=== PATIENT | female | born 1945 | race Caucasian/White ===

== ENCOUNTER → 2023-04-21 09:45 | Outpatient (REF) | payer MEDICARE, OTHER, SELFPAY ==
[2023-04-21 11:31] LABS: ALT (SGPT) 17 U/L (0-35); AST (SGOT) 25 U/L (14-36); Alkaline Phosphatase 33 U/L (38-126); Blood Urea Nitrogen 23 mg/dl (7-17); Calcium 9.4 mg/dl (8.4-10.2); Carbon Dioxide 27 mmol/L (22-30); Chloride 101 mmol/L (98-107); Glucose 102 mg/dl (70-99); Potassium 4.4 mmol/L (3.5-5.1); Sodium 137 mmol/L (135-145); Total Bilirubin 0.7 mg/dl (0.2-1.3); Total Protein 6.3 g/dl (6.3-8.2); eGFR > 60.00
[2023-04-21 12:05] LABS: TSH 1.05 uIU/ml (0.47-4.68)
== END ==
LOC: REG 09:45
PROVIDERS: ATTENDING PHYSICIAN Internal Medicine Endocrinology, Diabetes & Metabolism; FAMILY PHYSICIAN Internal Medicine
DX: M81.0 Age-related osteoporosis without current pathological fracture (principal); E03.9 Hypothyroidism, unspecified
CPT/HCPCS: 36415; 80053; 84443

== ENCOUNTER → 2023-06-30 08:56 | Outpatient (REF) | payer MEDICARE, OTHER, SELFPAY ==
[2023-06-30 09:47] LABS: ALT (SGPT) 18 U/L (0-35); AST (SGOT) 25 U/L (14-36); Albumin 4.3 g/dl (3.5-5.0); Alkaline Phosphatase 40 U/L (38-126); Blood Urea Nitrogen 31 mg/dl (7-17); Calcium 9.4 mg/dl (8.4-10.2); Carbon Dioxide 24 mmol/L (22-30); Chloride 105 mmol/L (98-107); Glucose 104 mg/dl (70-99); HDL Cholesterol 98 mg/dl; LDL Cholesterol, Calculated 86 mg/dl; Sodium 139 mmol/L (135-145); Total Bilirubin 0.6 mg/dl (0.2-1.3); Total Cholesterol 214 mg/dl (50-199); Total Protein 6.7 g/dl (6.3-8.2); Triglyceride 153 mg/dl (10-149); Very Low Density Lipoprotein 30 mg/dl (0-30); eGFR > 60.00
[2023-06-30 09:49] LABS: Glycohemoglobin (HgbA1c) 5.7 % (4.0-5.6)
[2023-06-30 10:03] LABS: Potassium 4.4 mmol/L (3.5-5.1)
== END ==
LOC: REG 08:56
PROVIDERS: ATTENDING PHYSICIAN Internal Medicine; REFERRING PHYSICIAN Internal Medicine Endocrinology, Diabetes & Metabolism
DX: E78.00 Pure hypercholesterolemia, unspecified (principal); R73.01 Impaired fasting glucose
CPT/HCPCS: 36415; 80053; 80061; 83036

== ENCOUNTER 2023-11-23 20:34 | Observation (INO) | payer MEDICARE, OTHER, SELFPAY ==
[2023-11-23] VITALS (11 sets, daily range): BP systolic 113–166; BP diastolic 47–150; BMI 22.9; BMI 23.5
--- NOTE | 2023-11-23 12:40 | ED.GENMED ---
History of Present Illness
<Arias Gaines PA-C - Last Filed: 11/24/23 16:18>
General
Chief Complaint: Facial Problem
Source: patient
Exam Limitations: none
Time Seen by Provider: 11/23/23 12:19
History of Present Illness
History of Present Illness:
78-year-old female presents with the onset of a right-sided facial droop that started at 11 AM today. She notices after she went for a swim this morning. She denies any significant headache or vision change. No chest pain or shortness of breath.
She notes fatigue recently but denies any rash or known tick bites. No vomiting. No chest pain. She does have a history of a valve replacement. She is on a baby aspirin and Synthroid.
Phy Exam
<Arias Gaines PA-C - Last Filed: 11/24/23 16:18>
Physical Exam
Physical Exam:
General: Well-appearing female in no acute respiratory distress
HEENT: Normocephalic atraumatic pupils equal round reactive to light extraocular's are intact heart: Regular rate and rhythm no murmurs
Lungs: Clear no wheeze
Neurologic alert and oriented x 3 there is a right facial droop. She is able to wrinkle her forehead on the right side however. No drift on exam finger-nose intact no dysarthria or aphasia.
Scores
<Arias Gaines PA-C - Last Filed: 11/24/23 16:18>
NIH Stroke Score
Level of Consciousness: 0 - Alert
LOC Questions: 0-Answers both correctly
LOC Commands: 0-Performs both correctly
Best Horizontal Gaze: 0-Normal
Visual Bishop: 0=Normal, no visual loss
Facial Palsy: 2=Partial paralysis
Motor - Right Arm: 0=No drift 10 seconds
Motor - Left Arm: 0=No drift 10 seconds
Motor - Right Le-No drift 5 seconds
Motor - Left Le-No drift 5 seconds
Limb Ataxia: 0-Absent
Sensation: 0-Normal
Best Language: 0-No aphasia
Dysarthria: 0-Normal
Extinction and Inattention: 0-No abnormality
Total Score:: 2
<Reza NiltonTraci Goode DO - Last Filed: 11/23/23 19:46>
NIH Stroke Score
Total Score:: 2
Course
<Arias Gaines PA-C - Last Filed: 11/24/23 16:18>
Orders/Labs/Results
Orders:
Orders
11/23/23 12:34
CT Head W/o Iv Contrast Urgent
Comment:
Reason For Exam: right facial droop
11/23/23 12:57
Cardiovascular Evaluation Urgent
Complete Blood Count/With Diff Urgent
Comprehensive Metabolic Panel Urgent
Glycohemoglobin (HgbA1c) Urgent
Lyme Progressive Urgent
TSH Reflex To Free T4 Urgent
Comment: ADD ON
11/23/23 13:13
Electrocardiogram (*1) Urgent
Reason for Study: TIA/Stroke
EKG- Treatment ONCE
11/23/23 13:24
Consult Neurology [NEUROLOGY CONSULT] Urgent
Consulting Provider: Chuck Lin
Was physician already notified: Yes
11/23/23 13:26
MR Brain Without Contrast Routine
Comment:
Reason For Exam: ? bihemis stroke right facial droop, left arm sens
Recent pill cam endoscopy?: No
11/23/23 13:27
CT Head & Neck Angio W/wo IV Routine
Comment:
Reason For Exam: stenosis
11/23/23 13:49
Echo W Saline (bubble) Dop Routine
Reason for Study: tia/cva
11/23/23 14:00
Clopidogrel Bisulfate [Plavix] 75 mg PO DAILY
11/23/23 14:23
CARDIOLOGY CONSULT Urgent
Consulting Provider: Galo Childs
Was physician already notified: Yes
11/23/23 15:50
Add On- LAB Urgent
Tests Added?: TSH, Lipid Profile, Hemaglobin A1C
11/23/23 18:00
Atorvastatin [Lipitor] 40 mg PO QPM
11/23/23 19:37
Aspirin Chewable [Low Strength Aspirin] 324 mg PO NOW STA
Clopidogrel Bisulfate [Plavix] 225 mg PO NOW STA
11/23/23 20:19
Admit/Transfer Patient As Directed
Co-Sign Provider:
Level of Care: Observation services
Assign to:: Telemetry
Physician / Group: kay
Diagnosis: cva
Reason for Telemetry: Arrhythmia
Date to Stop Telemetry: 11/26/23
Time to Stop Telemetry: 11:00
Code Status As Directed
Resuscitation Status: Full Code
PRN Pain Medication Management As Directed
May give lesser potent ordered pain med per pt: Yes
preference::
Protocol:: Medication orders for pain may be administered in a
manner that supports deferring to patient preference
when the pt is:
- Requesting an ordered lesser potent pain medication.
Least to most potent pain medications are defined
as: acetaminophen < NSAID < tramadol < opioids
(morphine, oxycodone, hydromorphone).
- Requesting a lesser dose of the same medication IF
ORDERED.
- Requesting a less intrusive route of administration
if both routes are prescribed by the provider (PO <
IV).
11/23/23 21:52
Acetaminophen [Tylenol] 650 mg PO Q6HPRN PRN
11/23/23 21:52
Activity As Directed
Activity Level: As Tolerated
NIH Stroke Scale As Directed
Directions: Per protocol
Comment: every shift and with any change in condition or mental status
Neurological Checks As Directed
Frequency: q4h
Additional Instructions:: q4h x 24h upon admission to the floor, then qshift & with any change in condition
and mental status
Pneumatic Compression Sleeves As Directed
Type: Knee high
Vital Signs As Directed
Frequency: Per unit guidelines
DX Deep Vein Thrombosis Video Routine
11/24/23 04:49
Basic Metabolic Panel IN AM
Cardiovascular Evaluation IN AM
Complete Blood Count/No Diff IN AM
11/24/23 06:00
Levothyroxine [Synthroid] 75 mcg PO SUMOWETHFRSA@0600
11/24/23 08:00
Ascorbic Acid [Vitamin C] 500 mg PO DAILY
Aspirin Chewable [Low Strength Aspirin] 81 mg PO DAILY
Calcium Carbonate [Oscal Quinn 500] 500 mg PO DAILY
Multivitamin [Theragran] 1 tablet PO DAILY
guar gum 1 tbsp PO DAILY
11/24/23 18:00
Escitalopram Oxalate [Lexapro] 10 mg PO QPM
11/26/23 11:00
DC Protocol for Telemetry ONCE
12/13/23 08:00
Ergocalciferol [Drisdol (Vitamin D2)] 50,000 units PO Q21D
Abnormal Lab Results
11/23/23
12:57
BUN 24 H mg/dl
(7-17)
Glucose 105 H mg/dl
(70-99)
Total Cholesterol 242 H mg/dl
(50-199)
11/23/23 12:57
11/23/23 12:57
Vital Signs
Initial and Last Documented VS:
Initial Vital Signs
Temp Pulse Resp BP Pulse Ox
98.5 F 88 18 139/86 98
11/23/23 12:05 11/23/23 12:05 11/23/23 12:05 11/23/23 12:05 11/23/23 12:05
Last Documented Vital Signs
Temp Pulse Resp BP Pulse Ox
98.2 F 68 16 101/70 95
11/24/23 15:03 11/24/23 15:03 11/24/23 15:03 11/24/23 15:03 11/24/23 15:03
Joselt;Reza Goode, - Last Filed: 11/23/23 19:46>
Orders/Labs/Results
Orders:
Orders
11/23/23 12:34
CT Head W/o Iv Contrast Urgent
Comment:
Reason For Exam: right facial droop
11/23/23 12:57
Cardiovascular Evaluation Urgent
Complete Blood Count/With Diff Urgent
Comprehensive Metabolic Panel Urgent
Glycohemoglobin (HgbA1c) Urgent
Lyme Progressive Urgent
TSH Reflex To Free T4 Urgent
Comment: ADD ON
11/23/23 13:13
Electrocardiogram (*1) Urgent
Reason for Study: TIA/Stroke
EKG- Treatment ONCE
11/23/23 13:24
Consult Neurology [NEUROLOGY CONSULT] Urgent
Consulting Provider: Chuck Lin
Was physician already notified: Yes
11/23/23 13:26
MR Brain Without Contrast Routine
Comment:
Reason For Exam: ? bihemis stroke right facial droop, left arm sens
Recent pill cam endoscopy?: No
11/23/23 13:27
CT Head & Neck Angio W/wo IV Routine
Comment:
Reason For Exam: stenosis
11/23/23 13:49
Echo W Saline (bubble) Dop Routine
Reason for Study: tia/cva
11/23/23 14:00
Clopidogrel Bisulfate [Plavix] 75 mg PO DAILY
11/23/23 14:23
CARDIOLOGY CONSULT Urgent
Consulting Provider: Galo Childs
Was physician already notified: Yes
11/23/23 15:50
Add On- LAB Urgent
Tests Added?: TSH, Lipid Profile, Hemaglobin A1C
11/23/23 18:00
Atorvastatin [Lipitor] 40 mg PO QPM
11/23/23 19:37
Aspirin Chewable [Low Strength Aspirin] 324 mg PO NOW STA
Clopidogrel Bisulfate [Plavix] 225 mg PO NOW STA
11/23/23 20:19
Admit/Transfer Patient As Directed
Co-Sign Provider:
Level of Care: Observation services
Assign to:: Telemetry
Physician / Group: kay
Diagnosis: cva
Reason for Telemetry: Arrhythmia
Date to Stop Telemetry: 11/26/23
Time to Stop Telemetry: 11:00
Code Status As Directed
Resuscitation Status: Full Code
PRN Pain Medication Management As Directed
May give lesser potent ordered pain med per pt: Yes
preference::
Protocol:: Medication orders for pain may be administered in a
manner that supports deferring to patient preference
when the pt is:
- Requesting an ordered lesser potent pain medication.
Least to most potent pain medications are defined
as: acetaminophen < NSAID < tramadol < opioids
(morphine, oxycodone, hydromorphone).
- Requesting a lesser dose of the same medication IF
ORDERED.
- Requesting a less intrusive route of administration
if both routes are prescribed by the provider (PO <
IV).
11/23/23 21:52
Acetaminophen [Tylenol] 650 mg PO Q6HPRN PRN
11/23/23 21:52
Activity As Directed
Activity Level: As Tolerated
NIH Stroke Scale As Directed
Directions: Per protocol
Comment: every shift and with any change in condition or mental status
Neurological Checks As Directed
Frequency: q4h
Additional Instructions:: q4h x 24h upon admission to the floor, then qshift & with any change in condition
and mental status
Pneumatic Compression Sleeves As Directed
Type: Knee high
Vital Signs As Directed
Frequency: Per unit guidelines
DX Deep Vein Thrombosis Video Routine
11/24/23 04:49
Basic Metabolic Panel IN AM
Cardiovascular Evaluation IN AM
Complete Blood Count/No Diff IN AM
11/24/23 06:00
Levothyroxine [Synthroid] 75 mcg PO SUMOWETHFRSA@0600
11/24/23 08:00
Ascorbic Acid [Vitamin C] 500 mg PO DAILY
Aspirin Chewable [Low Strength Aspirin] 81 mg PO DAILY
Calcium Carbonate [Oscal Quinn 500] 500 mg PO DAILY
Multivitamin [Theragran] 1 tablet PO DAILY
guar gum 1 tbsp PO DAILY
11/24/23 18:00
Escitalopram Oxalate [Lexapro] 10 mg PO QPM
11/26/23 11:00
DC Protocol for Telemetry ONCE
12/13/23 08:00
Ergocalciferol [Drisdol (Vitamin D2)] 50,000 units PO Q21D
Abnormal Lab Results
11/23/23
12:57
BUN 24 H mg/dl
(7-17)
Glucose 105 H mg/dl
(70-99)
Total Cholesterol 242 H mg/dl
(50-199)
11/23/23 12:57
11/23/23 12:57
Vital Signs
Initial and Last Documented VS:
Initial Vital Signs
Temp Pulse Resp BP Pulse Ox
98.5 F 88 18 139/86 98
11/23/23 12:05 11/23/23 12:05 11/23/23 12:05 11/23/23 12:05 11/23/23 12:05
Last Documented Vital Signs
Temp Pulse Resp BP Pulse Ox
98.2 F 68 16 101/70 95
11/24/23 15:03 11/24/23 15:03 11/24/23 15:03 11/24/23 15:03 11/24/23 15:03
<Arias Gaines PA-C - Last Filed: 11/24/23 16:18>
MDM/Problems Addressed
Differential Diagnosis Includes:
Right facial droop. Onset 11 AM. Question CVA versus TIA versus Granger's palsy. Unlikely be Granger's palsy as patient maintains the ability to wrinkle both sides of her forehead.
Check labs. CT of head. Upon seeing the patient, stroke alert was ordered. Symptoms are within 3 hours of onset.
<Arias Gaines PA-C - Last Filed: 11/24/23 16:18>
*Critical Care Note
Total Time (30-74mins, 75-104mins- exclusive of procedures): See ED attending note
<Arias Gaines PA-C - Last Filed: 11/24/23 16:18>
Update Note
Update Note:
EKG shows sinus rhythm with a rate of 73 no ischemic changes
Case signed out to ED attending
ED Attending Note
<TAMIKO Vogt Last Filed: 11/24/23 16:18>
-
Portions of this chart may have been created with voice recognition software.� Occasional wrong word or��sound alike� substitutions may have occurred due to the inherent limitations of voice recognition software.
<Reza Goode, - Last Filed: 11/23/23 19:46>
ED Attending Note
Patient seen and examined by attending physician: Yes
I performed the substantive portion of visit, reviewed & personally made and approve the management plan that is documented in note by myself or JUANA.: Yes
ED Attending Note:
I agree with Fransisco's note
Patient returned home from exercising (swimming) when she noticed right facial droop at approximately 11 AM. Patient denies any headache, change in hearing, change in taste, focal weakness numbness or tingling anywhere else in her body. She has
been able to walk without difficulty. She does not feel her speech is slurred. She denies word finding difficulty.
General: Awake, Alert, Oriented X3. No acute distress.
Vitals: unremarkable
Head: Atraumatic
Eyes: Pupils equal, EOMI
Throat: Airway intact, no exudates
Neck: Trachea midline
Lungs: Clear and equal b/l
Heart: Regular rate, no murmurs
Abd: Soft, Nontender, No pulsatile mass
Neuro: Subtle right facial droop without clear involvement of the forehead, muscle strength equal bilaterally, cerebellar exam normal
Skin: Warm, dry, no rash
Extremities: pulses equal b/l, no edema
Patient presents with a right facial droop and no other signs or symptoms of stroke. Her forehead is not clearly involved but the overall presentation seems highly suggestive of Granger's palsy. However given the lack of forehead involvement stroke
alert was called and we will initiate a stroke workup. However her NIH score for me is 1-2. Her speech is not involved. Therefore she is not a candidate for TNK or IAT in my estimation
Extensive testing ordered by neurology in hopes all would be normal, CVA would be excluded and pt could be discharged. MRI does show acute infarct on left. Echo does show small PFO. Pt will be admitted for monitoring and further neuro/cardiac
evaluation.
Critical care 32 min
Critical care statement: A total of 32 minutes of critical care time was provided for this patient. This includes management of unstable vital signs, evaluation of the patient at bedside, reviewing the patient's pertinent medical records, discussion
with consultants, review of old EKGs and review of pertinent medical records. This time with separate from time utilized to perform the aforementioned documented procedures
Discharge Plan
Departure
Patient Disposition: Admit
Date of Disposition: 11/23/23
Time of Disposition: 19:41
Presentation/result/management discussed w/ accepting MD/DO: Hospitalist
Condition: Fair
Discharge Problem:
Acute CVA (cerebrovascular accident)
Interventions
Interventions:
*Risk Screen - Suicide Last Done: 11/23/23 13:01
*General Assessment Last Done: 11/23/23 13:01
*Neglect/Abuse Screening Last Done: 11/23/23 13:01
*ED COVID-19 Vaccine History Last Done: 11/23/23 22:00
*Nursing Disposition Last Done: 11/23/23 21:59
ED- Neurological Assessment Last Done: 11/23/23 13:01
ED-Skin Assessment Last Done: 11/23/23 13:01
Discharge Date and Time
Discharge Date/Time: 11/23/23 21:59
[2023-11-23 13:10] LABS: % Basophils 0.8 % (0-2); % Eosinophils 1.6 % (0-6); % Immature Granulocytes 0.2 % (0-0.5); % Lymphocytes 37.8 % (20.5-51.1); % Monocytes 8.6 % (1.7-9.3); Absolute Eosinophils 0.1 10^3/uL (0-0.7); Absolute Lymphocytes 1.9 10^3/uL (1.2-3.4); Absolute Monocytes 0.4 10^3/uL (0.1-0.6); Absolute Neutrophils 2.5 10^3/uL (1.4-6.5); Hematocrit 38.8 % (37.0-47.0); Hemoglobin 13.2 g/dL (12.0-16.0); Mean Corpuscular Hgb 30.9 pg (27.0-31.0); Mean Corpuscular Volume 90.9 fL (81.0-99.0); Nucleated Red Blood Cells % 0 %; Platelet Count 212 10^3/uL (130-400); Red Blood Cell Count 4.27 10^6/uL (4.20-5.40); Red Cell Dist. Width 13.1 % (11.5-14.5); White Blood Cell Count 4.9 10^3/uL (4.8-10.8)
--- NOTE | 2023-11-23 13:25 | CON.NEURO4 ---
Addendum entered and electronically signed by Chuck Lin MD 11/24/23 07:28:
Billing: Level 2 on 11/23/2023
Addendum entered and electronically signed by DELON Ortega 11/24/23 07:26:
Dr. Lin added to contributors
Addendum entered and electronically signed by Chuck Lin MD 11/23/23 16:22:
Studies reviewed.
I have personally examined the patient. I reviewed and agree with the CHANNEL SPECIALIST's Note.
My addenda:
Awake, alert, interactive. No acute distress.
Speech intact.
Follows 2-step requests w/o difficulty. No tremor.
Extra-ocular movements grossly intact.
Facial movements full and symmetric. Hearing intact to normal conversational volume.
Normal UE movements bilaterally.
Neck: full ROM.
Chest: no dyspnea
Heart: no JVD
Ext: (-) Clubbing, (-) Cyanosis, (-) Edema
IMPRESSIONS/RECOMMENDATIONS:
Abrupt onset of right facial weakness and multiple days of left hand sensation change in a patient with bioprosthetic aortic valve replacement
Differential diagnosis includes multifocal acute and subacute ischemic strokes
Patient was not a candidate for either alteplase or intra-arterial thrombectomy due to NIH stroke scale less than 6
Add clopidogrel to aspirin, chronic use, for 21 days unless there is evidence that the patient may benefit instead from the use of anticoagulant and discontinuance of antiplatelet agents
Start atorvastatin, follow lipid profile
Check MRI of brain
Check CTA head and neck
No clear indication for rehabilitation at this time
D/W patient / family / nursing
All questions answered.
Will continue to follow patient.
Original Note:
Consultation - Neurology 4
-
CONSULTING PHYSICIAN: Dr. Chuck Lin
REFERRING PHYSICIAN: TAMANNA Rankin
DICTATED BY: DELON Ortega
DATE/TIME OF REQUEST: 11/23/2023
DATE/TIME OF CONSULTATION: 11/23/2023, 1300
Reason for Consultation: Stroke Alert
History of Present Illness:
This is a 78-year-old right-handed female patient with a past medical history as noted below. She presented to the ER today after noting a right facial droop. She reports she was in her normal state of health at 915 when she went swimming at the
pool. When she came home at 1030 she noted the right facial droop. She also reports about 3 days ago she started with left arm weakness and numbness of left fingers. This is mild. She thought that this was maybe related to recent exercise. She
denies any neck pain. She denied any chest pain or shortness of breath. She denies any weakness in legs. She denies any right arm weakness. She denies any additional numbness or weakness. She denies any trouble with speech or swallowing. She
did have a mild headache today. She does take aspirin 81 mg. She has been taking this for some time. She did have aortic valve replacement in 2021. She states she has had tachycardia, palpitations and associated lightheadedness since surgery.
She denies any current lightheadedness. She does report she has mild daily headaches since the aortic replacement. She does follow with Dr. Torres, she last saw him 09/2022. She has no history of similar episodes or stroke. She denies any recent
illness. She does feel that facial droop has improved some since arrival to the ER.
Past Medical History: Maninder's, osteoporosis, aortic stenosis with valve replacement, tachycardia, CAD, [employer] pneumonia, hypothyroidism, TMJ, vertigo,
Surgical History: Aortic valve replacement via TAVR 07/2021, herniated disks 2017, right knee arthroscopy
Family History: Family history of stroke, mother
Social History: Patient lives with her . She is a retired teacher. Former smoker.
Allergies: No known drug allergies
Home Medications: see below
Review of Symptoms:
Patient denies any fever, headache, chest pain, shortness of breath, GI or symptoms.
�
Vital Signs:
See below
Physical Exam:
The patient is afebrile, heart sounds S1 and S2 are and no dyspnea noted.
NIH Stroke Scale:
See below
Neurologic Examination:
The patient is awake, alert and oriented x 3. She is able to follow commands and answer questions appropriately. There is no aphasia or dysarthria. On cranial nerve assessment, pupils are 3 mm bilateral, round and reactive to light and
accommodation. Visual bishop are full. Extraocular movements are intact. Facial sensations are intact and bilaterally symmetrical, there is mild right facial droop. Hearing is intact bilaterally to normal conversation volume. Tongue palate and uvula
are midline. Sternocleidomastoid strengths are full bilaterally. Motor strengths are 5/5 bilateral upper and lower extremities on medical research [place] scale. There is no drift or involuntary movement noted. Deep tendon reflexes are 2+ bilateral
upper and lower extremities and Babinski is absent bilaterally. Sensations of pain, touch, temperature and vibration are intact and bilaterally symmetrical. There was no extinction noted on double simultaneous stimulation. Coordination is intact by
finger to nose bilaterally.
Lab Results: see below
Neuro Imaging:
CT head 11/23/2023 No acute intracranial abnormality.
Impression:
LORENZA SNIDER is a 78 year old F who has presented to the hospital with right facial droop. She also reported some left arm weakness and numbness of fingers during evaluation. Symptoms are likely related to TIA versus acute stroke.
Patient has the following risk factors for their symptoms: Age, CAD, aortic valve replacement
IV Tenecteplase/IAT candidacy-not a candidate d/t NIH 1
Recommendations:
CTA head and neck
MRI brain-if MRI able to be completed today and negative for stroke can likely be discharged from the ER
ASA 81 mg and Plavix 75 mg for 21 days
Check lipids and HgbA1c
Check Echo
start Atorvastatin 40 mg
Tylenol 650 mg as needed for headache
recommend cardiology evaluation
consider rehab evaluations if admitted
Discussed patient care with ER physician, Neurologist, patient and nursing.
Medication and Allergies
Home Medications
Home Medications
�Medication �Instructions �Recorded
denosumab 60 mg/mL subcutaneous 60 mg SQ .[id number] BONE 05/28/21
syringe (Prolia)
escitalopram oxalate 10 mg tablet 10 mg PO QPM Mental Health/Anxiety 05/28/21
gtdkwgzcicrd-zijhzxnd-yunh 1 ea PO DAILY Supplement 05/28/21
fumarate 7.5 mg-folic acid 400 mcg
tablet
acetaminophen 325 mg tablet 650 mg (2 x 325 mg) PO Q6HPRN PRN 07/18/21
[place], mild pain, or fever >101F
ascorbic acid (vitamin C) 500 mg 500 mg PO DAILY 11/23/23
tablet
aspirin 81 mg chewable tablet 81 mg PO DAILY 11/23/23
calcium carbonate 500 mg PO DAILY 11/23/23
ergocalciferol (vitamin D2) 1,250 1,250 mcg PO Q21D 11/23/23
mcg (50,000 unit) capsule
guar gum 1 tbsp PO DAILY 11/23/23
levothyroxine 75 mcg tablet 75 mcg PO SUMOWETHFRSA@0600 11/23/23
(Synthroid)
Allergies
Allergies
Allergy/AdvReac Type Severity Reaction Status Date / Time
No Known Allergies Allergy Unverified 11/23/23 12:07
Vital Signs and Labs
-
Vital Signs and Labs:
Vital Signs
Temp Pulse Resp BP Pulse Ox
98.5 F 74 18 146/85 96
11/23/23 12:05 11/23/23 13:01 11/23/23 13:01 11/23/23 13:01 11/23/23 13:01
Lab Results
11/23/23 12:57
11/23/23 12:57
Sodium 137 mmol/L (135-145) 11/23/23 12:57
Potassium 4.5 mmol/L (3.5-5.1) 11/23/23 12:57
BUN 24 mg/dl (7-17) H 11/23/23 12:57
Glucose 105 mg/dl (70-99) H 11/23/23 12:57
Calcium 9.8 mg/dl (8.4-10.2) 11/23/23 12:57
NIH Stroke Scale
NIH Stroke Score
Date of Subsequent NIH Scale: 11/23/23
Time of Subsequent NIH Scale: 13:00
Level of Consciousness: 0 - Alert
LOC Questions: 0-Answers both correctly
LOC Commands: 0-Performs both correctly
Best Horizontal Gaze: 0-Normal
Visual Bishop: 0=Normal, no visual loss
Facial Palsy: 1=Minor paralysis
Motor - Right Arm: 0=No drift 10 seconds
Motor - Left Arm: 0=No drift 10 seconds
Motor - Right Le-No drift 5 seconds
Motor - Left Le-No drift 5 seconds
Limb Ataxia: 0-Absent
Sensation: 0-Normal
Best Language: 0-No aphasia
Dysarthria: 0-Normal
Extinction and Inattention: 0-No abnormality
Total Score:: 1
[2023-11-23 13:27] LABS: ALT (SGPT) 17 U/L (0-35); Albumin 4.4 g/dl (3.5-5.0); Alkaline Phosphatase 38 U/L (38-126); Blood Urea Nitrogen 24 mg/dl (7-17); Calcium 9.8 mg/dl (8.4-10.2); Carbon Dioxide 29 mmol/L (22-30); Chloride 103 mmol/L (98-107); Estimated Creatinine Clearance 45 ml/min; Glucose 105 mg/dl (70-99); Potassium 4.5 mmol/L (3.5-5.1); Sodium 137 mmol/L (135-145); Total Bilirubin 0.5 mg/dl (0.2-1.3); Total Protein 6.5 g/dl (6.3-8.2); eGFR > 60.00
[2023-11-23] MEDS: PLAVIX 75 MG PO (13:57)
[2023-11-23 14:01] LABS: AST (SGOT) 24 U/L (14-36)
--- NOTE | 2023-11-23 14:34 | CON.CAR ---
Addendum entered and electronically signed by Galo Childs MD 11/23/23 16:04:
I saw and examined the patient.
The AUXILIARY ENGINEER's note was reviewed and I agree with the note.
Comment: 78-year-old female (known to Dr. Torres, her primary fireman), with hypothyroidism, osteoporosis, and severe stenosis s/p TAVR (07/2021), who presented to the emergency department the chief complaint of left facial droop. We are being
asked to evaluate for tachycardia. Previously, she has had a HM which showed sinus tachycardia. We discussed further extended monitor such as 2 week monitor to evaluate possible AF.
- 14 day event monitor
- f/u with cardiology as an outpatient
Original Note:
Consultation
Consultation Request
Date/Time Consultation Requested: 11/23/2023 14:25
Date/Time Consultation Performed: 11/23/2023 14:35
Requesting Provider: TAMIKO Gaines
Performing Provider: DELON Coleman for Dr. Childs
Reason for Consultation: Tachycardia
Medical History
-
Chief Complaint: Left facial droop
History of Present Illness:
Patient is a 78-year-old female (known to Dr. Torres, her primary fireman), with hypothyroidism, osteoporosis, and severe stenosis s/p TAVR (07/2021), who presented to the emergency department the chief complaint of left facial droop. She
called the outpatient cardiology office to report lightheadedness for 4 days. She also stated her heart rate had been high. While discussing her symptoms she endorsed a right-sided facial droop that started prior to her phone call. She was
referred to the emergency department. Head CT did not demonstrate CVA. She has been evaluated by neurology during stroke alert. Cardiology has been consulted for palpitations and elevated heart rate. She has palpitations with associated
shortness of breath when getting up from the couch after doing activity like reading. She has a [employer] mobile which has been reading tachycardia. She wears an Apple Watch that has not alarmed for atrial fibrillation. Her palpitations,
tachycardia, and associated shortness of breath started after her TAVR.
Past Medical History
Past Medical History: Hypothyroidism, Valvular Disease (Severe aortic stenosis s/p TAVR) and Other (Osteoporosis)
Past Surgical History: Cardiac (TAVR) and Orthopedic
Social History
Tobacco: Former Smoker
Alcohol: None
Drug: None
Personal:
Living: With Family
Employment: Retired (Teacher)
Family History
Family History: Reviewed & Not Pertinent
Allergies / Home Medications
Allergy/AdvReac Type Severity Reaction Status Date / Time
No Known Allergies Allergy Unverified 11/23/23 12:07
�Medication �Instructions �Recorded �Confirmed �Type
denosumab 60 mg/mL subcutaneous 60 mg SQ .[id number] BONE 05/28/21 11/23/23 History
syringe (Prolia)
escitalopram oxalate 10 mg tablet 10 mg PO QPM Mental Health/Anxiety 05/28/21 11/23/23 History
ldllirdukycv-xunfgwlo-nitj 1 ea PO DAILY Supplement 05/28/21 11/23/23 History
fumarate 7.5 mg-folic acid 400 mcg
tablet
acetaminophen 325 mg tablet 650 mg (2 x 325 mg) PO Q6HPRN PRN 07/18/21 11/23/23 Rx
DEL VALLE, mild pain, or fever >101F
ascorbic acid (vitamin C) 500 mg 500 mg PO DAILY 11/23/23 11/23/23 History
tablet
aspirin 81 mg chewable tablet 81 mg PO DAILY 11/23/23 11/23/23 History
calcium carbonate 500 mg PO DAILY 11/23/23 11/23/23 History
ergocalciferol (vitamin D2) 1,250 1,250 mcg PO Q21D 11/23/23 11/23/23 History
mcg (50,000 unit) capsule
guar gum 1 tbsp PO DAILY 11/23/23 11/23/23 History
levothyroxine 75 mcg tablet 75 mcg PO SUMOWETHFRSA@0600 11/23/23 11/23/23 History
(Synthroid)
Review of Systems
-
History Source: Patient
All other systems: Negative unless noted
Constitutional: No Symptoms
EENT: No Symptoms
Respiratory: No Symptoms
Cardiac: Palpitations
Abdomen/GI: No Symptoms
: No Symptoms
Musculoskeletal: No Symptoms
Skin: No Symptoms
Neurological: Other (facial droop)
Endocrine: No Symptoms
Hematologic/Lymphatic: No Symptoms
Physical Exam
Vital Signs
Temp Pulse Resp BP Pulse Ox
98.5 F 74 18 146/85 96
11/23/23 12:05 11/23/23 13:01 11/23/23 13:01 11/23/23 13:01 11/23/23 13:01
Lab Results
11/23/23 12:57
11/23/23 12:57
Physical Exam
General: Well Developed, Well Nourished, No Apparent Distress and Comfortable
HEENT: Normocephalic, Anicteric and Moist Mucous Membranes
Respiratory: Clear and Non Labored Respirations
Cardiac: S1/S2 and Regular Rhythm; Negative Peripheral Edema
Breast: Deferred by me
GI: Soft, Non Tender, Non Distended and Normal Bowel Sounds
Rectal: Deferred by Provider
Genito-urinary: No Costovertebral Tender
Musculoskeletal: No Clubbing, No Cyanosis and No Edema
Skin: Warm and Dry
Neuro: AO x 3
Hematologic/Lymphatic: No Lymphadenopathy
Psych: Calm
Impression / Plan
-
Left facial droop
-Head CT without acute pathology
-CTA pending
-Echocardiogram
-Lipid panel pending
Tachycardia, chronic
-Outpatient Holter showed 16% tachycardia
-48-hour Holter monitor will be arranged at discharge
Severe aortic stenosis s/p TAVR (07/2021)
-#29 Medtronic CoreValve Evolut Pro
-Prior echocardiogram shows a mean gradient of 6 mmHg with trace AI
Maninder's disease, TSH pending
LBBB
Data Reviewed
-
EKG: Report Reviewed by me (Sinus rhythm, LBBB, rate 73)
CT Scan: Report Reviewed by me (Head: No acute intracranial abnormality)
Medical Tests (Nuc Med, Echo etc): Report Reviewed by me (Prior echocardiogram and cardiac catheterization lab report as above)
Labs: Labs Reviewed by me
Old Records: Reviewed
--- NOTE | 2023-11-23 15:01 | PTCARENOTE ---
agitated saline contrast echo completed, using existing IV site RFA. tolerated. 2 sets agitated saline injections performed per protocol under direction echo. questions answered. tolerated procedure well.
[2023-11-23 17:53] LABS: HDL Cholesterol 96 mg/dl; LDL Cholesterol, Calculated 122 mg/dl; Total Cholesterol 242 mg/dl (50-199); Triglyceride 124 mg/dl (10-149); Very Low Density Lipoprotein 24 mg/dl (0-30)
[2023-11-23 18:34] LABS: TSH Reflex To Free T4 1.09 uIU/ml (0.47-4.68)
[2023-11-23] MEDS: LIPITOR 40 MG PO (19:29)
[2023-11-23] MEDS: PLAVIX 225 MG PO (19:42)
[2023-11-23] MEDS: LOW STRENGTH ASPIRIN 324 MG PO (19:42)
--- NOTE | 2023-11-23 20:21 | HPS.HSE ---
Family Physician
-
Family Physician: Camila Bermudez
Chief Complaint
-
right sided facial droop
History of Present Illness
78-year-old female past medical history of severe aortic stenosis status post TAVR, hypothyroidism, osteopenia/osteoporosis, temporomandibular joint dysfunction, chronic neck/back pain, presenting to the emergency room for right-sided facial droop.
She has been having intermittent tachycardia associated shortness of breath and dizziness since her aortic valve surgery 2 years ago. Today she developed right sided facial droop and called her pull tab dealer who recommended she come to the emergency
room. She did have some minor headache earlier today. No blurry vision. She did have some left hand numbness over the past few days involving all the fingers. Denies any focal weakness, difficulty speaking or swallowing.
She drinks half a glass of wine per night. Denies smoking.
Her mother had heart disease and stroke.
Medical History
Past Medical History
Past Medical History: Reports Other (severe aortic stenosis status post TAVR, hypothyroidism, osteopenia/osteoporosis, temporomandibular joint dysfunction, chronic neck/back pain)
Past Surgical History: Reports Orthopedic and Other (TAVR )
Social History
Tobacco: Non-smoker
Alcohol: Daily
Drug: None
Family History
Family History: CAD and Other (CVA )
Allergies / Home Medications
Allergies reflects when Allergies were last updated in [facility].
Home Medications with original date entered in [facility]
Allergy/Medication List:
Allergies
Allergy/AdvReac Type Severity Reaction Status Date / Time
No Known Allergies Allergy Unverified 11/23/23 12:07
Home Medications
denosumab 60 mg/mL subcutaneous syringe (Prolia) 60 mg SQ .[id number] BONE 05/28/21
escitalopram oxalate 10 mg tablet 10 mg PO QPM Mental Health/Anxiety 05/28/21
xyfiihjlcbwe-rrczvrct-wcai fumarate 7.5 mg-folic acid 400 mcg tablet 1 ea PO DAILY Supplement 05/28/21
acetaminophen 325 mg tablet 650 mg (2 x 325 mg) PO Q6HPRN PRN DEL VALLE, mild pain, or fever >101F 07/18/21
ascorbic acid (vitamin C) 500 mg tablet 500 mg PO DAILY 11/23/23
aspirin 81 mg chewable tablet 81 mg PO DAILY 11/23/23
calcium carbonate 500 mg PO DAILY 11/23/23
ergocalciferol (vitamin D2) 1,250 mcg (50,000 unit) capsule 1,250 mcg PO Q21D 11/23/23
guar gum 1 tbsp PO DAILY 11/23/23
levothyroxine 75 mcg tablet (Synthroid) 75 mcg PO SUMOWETHFRSA@0600 11/23/23
Review of Systems
-
History Source: Patient
Constitutional: Reports No Symptoms
EENT: Reports No Symptoms
Respiratory: Reports No Symptoms
Cardiac: Reports See HPI
Abdomen/GI: Reports No Symptoms
: Reports No Symptoms
Musculoskeletal: Reports No Symptoms
Skin: Reports No Symptoms
Neurological: Reports See HPI
Endocrine: Reports No Symptoms
Hematologic/Lymphatic: Reports No Symptoms
Psych: Reports No Symptoms
Physical Exam
Vital Signs
Vital Signs
Temp Pulse Resp BP Pulse Ox
98.5 F 68 17 151/86 95
11/23/23 12:05 11/23/23 16:00 11/23/23 16:00 11/23/23 15:22 11/23/23 15:45
Physical Exam
General: Well Developed, Well Nourished and No Apparent Distress
HEENT: NormoCephalic, Moist mucous membranes and Atraumatic
Respiratory: Clear
Cardiac: S1/S2 and Regular Rhythm; No Murmur or Rub
GI: Soft, Non Tender, Non Distended and Normal Bowel Sounds; No Organomegaly
Rectal: Deferred by Provider
Musculoskeletal: No Clubbing, No Cyanosis and No Edema
Skin: No Rash
Neuro: Nonfocal/grossly intact and Other (right facial droop lower mouth )
Laboratory Results
-
11/23/23 12:57
11/23/23 12:57
Laboratory Results
Total Bilirubin 0.5 mg/dl (0.2-1.3) 11/23/23 12:57
AST 24 U/L (14-36) 11/23/23 12:57
ALT 17 U/L (0-35) 11/23/23 12:57
Alkaline Phosphatase 38 U/L (38-126) 11/23/23 12:57
Data Reviewed
-
Lab Data: Labs Reviewed by me
Old Records: Reviewed
Impression/Plan
-
IMPRESSION:
PLAN:
# Acute/subacute left frontal lobe infarcts
-Right-sided facial droop on examination
-MRI brain with 2 areas of frontal lobe infarcts
-CTA head and neck shows no high-grade stenosis or large vessel occlusion
-Continue aspirin
-Plavix added
-Statin added
-Neurology following
# Small PFO
-Outpatient cardiology follow-up
# Tachycardia
-EKG shows normal sinus rhythm, left bundle branch block
-Telemetry monitoring
-48-hour Holter monitor to be arranged by cardiology
Severe aortic stenosis status post TAVR
Hypothyroidism
-Continue levothyroxine
Osteopenia/osteoporosis
-Continue calcium, vitamin D
Temporomandibular joint dysfunction
Chronic neck/back pain
Anxiety/depression
-Continue Lexapro
Full code
DVT prophylaxis�SCDs
Regular diet
--- NOTE | 2023-11-23 22:00 | PTCARENOTE ---
patient received from ED, ambulated from stretcher to bed, gait steady. NIH 1-slight right facial droop noted. NSR on monitor, blood pressure as documented. No edema noted. Lungs clear, room air. Abdomen soft with positive bowel sounds. Voids.
#20 g in right forearm flushed and patent
[2023-11-24 03:00] VITALS: BP 135/77
[2023-11-24] MEDS: SYNTHROID 75 MCG PO (05:44)
[2023-11-24 07:05] VITALS: BP 105/67
[2023-11-24 07:18] LABS: Hematocrit 38.7 % (37.0-47.0); Hemoglobin 13.1 g/dL (12.0-16.0); Mean Corp Hgb Conc. 33.9 g/dL (33.0-37.0); Mean Corpuscular Hgb 31.4 pg (27.0-31.0); Mean Corpuscular Volume 92.8 fL (81.0-99.0); Mean Platelet Volume 10.4 fL (7.4-10.4); Platelet Count 200 10^3/uL (130-400); Red Blood Cell Count 4.17 10^6/uL (4.20-5.40); Red Cell Dist. Width 13.1 % (11.5-14.5); White Blood Cell Count 5.1 10^3/uL (4.8-10.8)
--- NOTE | 2023-11-24 07:37 | W.PN.HOSP.TC ---
Addendum entered and electronically signed by José Miguel Stallworth MD 11/24/23 15:08:
acute cva. previously on asa. neuro added plavix. now on dapt indefinitely. started hi statin
-pt/ot to eval
small pfo, cards following, rec kandace with ilr. npo on
Original Note:
Today's Communication/Plan
-
.
Assessment / Plan
Assessment / Plan
Patient is a 78 YO F with PMH of aortic stenosis s/p TAVR who presented to hospital with R-sided facial droop and MRI showing 2 areas of frontal lobe infarct.
PLAN:
# Acute/subacute left frontal lobe infarcts
-Right-sided facial droop on examination
-MRI brain with 2 areas of frontal lobe infarcts
-CTA head and neck shows no high-grade stenosis or large vessel occlusion
-Continue aspirin
-Plavix added
-80 mg Atorvastatin added
-Neurology following
- PT and speech consulted. Appreciate input
# Small PFO
-Outpatient cardiology follow-up
# Tachycardia
-EKG shows normal sinus rhythm, left bundle branch block
-Telemetry monitoring
-48-hour Holter monitor to be arranged by cardiology at [facility]
Severe aortic stenosis status post TAVR
Hypothyroidism
-Continue levothyroxine
Osteopenia/osteoporosis
-Continue calcium, vitamin D
Temporomandibular joint dysfunction
Chronic neck/back pain
Anxiety/depression
-Continue Lexapro
Full code
DVT prophylaxis�SCDs
Regular diet
Anticipated Discharge: Within 24 hours
Subjective/Interval History
-
Date of Service: November 24, 2023
Patient reports feeling well today with most of weakness resolved. She states facial sensation is back. She states she has some mild dizziness today which is new
Objective Data
-
Labs:
Laboratory Results
11/24/23
04:49
WBC 5.1
Hgb 13.1
Hct 38.7
Plt Count 200
Sodium Pending
Potassium Pending
Chloride Pending
Carbon Dioxide Pending
BUN Pending
Creatinine Pending
Glucose Pending
Calcium Pending
Vital Signs:
Vital Signs
Temp Pulse Resp BP Pulse Ox
98.0 F 78 18 135/77 97
11/24/23 03:00 11/24/23 03:00 11/24/23 03:00 11/24/23 03:00 11/24/23 03:00
I&O
11/23/23 11/24/23 11/25/23
06:59 06:59 06:59
Intake Total 480 / 480
Balance 480 / 480
Review of Systems
-
History Source: Patient
Constitutional: Reports No Symptoms
EENT: Reports No Symptoms Reported
Respiratory: Reports No Symptoms
Cardiac: Reports No Symptoms
Abdomen/GI: Reports No Symptoms
Musculoskeletal: Reports No Symptoms
Neuro: Reports Dizzy
Physical Exam
-
General: Well Developed, Well Nourished, No Apparent Distress, Comfortable and Conversant
HEENT: Normocephalic and Atraumatic
Respiratory: Clear to Auscultation
Cardiac: Regular Rhythm and S1/S2
GI: Soft, Nontender, Nondistended and Normal Bowel Sounds
Musculoskeletal: No Clubbing, No Cyanosis and No Edema
Skin: Warm and Dry
Neuro: AO x 3, No Motor Deficits and Facial Droop (Mild)
Psych: Calm
Data Reviewed
-
Total Time Spent with Patient (in minutes): 30
Medical Tests (Nuc Med, Echo etc): Report Reviewed by me and Discussed with Physician
Labs: Labs Reviewed by me and Discussed with Physician
Old Records: Reviewed
[2023-11-24 08:13] LABS: Blood Urea Nitrogen 21 mg/dl (7-17); Calcium 9.2 mg/dl (8.4-10.2); Carbon Dioxide 26 mmol/L (22-30); Chloride 104 mmol/L (98-107); Estimated Creatinine Clearance 44 ml/min; Glucose 97 mg/dl (70-99); HDL Cholesterol 86 mg/dl; LDL Cholesterol, Calculated 122 mg/dl; Potassium 3.8 mmol/L (3.5-5.1); Sodium 138 mmol/L (135-145); Total Cholesterol 232 mg/dl (50-199); Triglyceride 122 mg/dl (10-149); Very Low Density Lipoprotein 24 mg/dl (0-30); eGFR > 60.00
--- NOTE | 2023-11-24 08:26 | W.PN.NEURO.1 ---
Addendum entered and electronically signed by Chuck Lin MD 11/24/23 16:27:
Studies reviewed.
I reviewed and agree with the PMO MANAGER's Note.
IMPRESSIONS/RECOMMENDATIONS:
Abrupt onset of right facial droop and subacute left arm sensation change
With evidence above by MRI of brain of left MCA acute ischemic stroke
dual antiplatelet therapy then aspirin
increase Atorvastatin to 80 mg
Will continue to follow as needed.
Original Note:
Today's Communication / Plan
-
-continue ASA and Plavix
-increase Atorvastatin
-PT/OT evaluations
Neuro Assessment/Plan
Assessment
This is a 78-year-old female patient with a past medical history of hypothyroidism, osteoporosis, severe aortic stenosis status post TAVR July 2021, who presented to the ER after noting a right facial droop. She also reported ongoing left arm
sensation changes and numbness in her fingertips for about 3 days.
-MRI brain showed small focal area of acute to subacute infarct involving the left frontal lobe in the region of the inferior and lateral precentral gyrus.
Plan
-Reviewed MRI brain with acute stroke
-reviewed CTA-with patent cervical and intracranial arterial vasculature without high-grade stenosis or large vessel occlusion.
-Neurochecks and NIH per unit guidelines
-Continue ASA and Plavix for 21 days then continue Plavix as stroke occurred while on ASA
-LDL 122, increase atorvastatin to 80 mg
-HgbA1c pending
-PFO noted on echo-cardiology following
-goal normotension
-PT/OT evaluations
-DVT prophylaxis
Subjective/Objective
Subjective Data
Date of Service: November 24, 2023
Pt feeling well this am. No new neurologic complaints.
Objective Data
Vital Signs
Temp Pulse Resp BP Pulse Ox
97.6 F 63 16 105/67 94
11/24/23 07:05 11/24/23 07:05 11/24/23 07:05 11/24/23 07:05 11/24/23 07:05
Lab Results
11/24/23 04:49
11/24/23 04:49
Sodium 138 mmol/L (135-145) 11/24/23 04:49
Potassium 3.8 mmol/L (3.5-5.1) 11/24/23 04:49
BUN 21 mg/dl (7-17) H 11/24/23 04:49
Glucose 97 mg/dl (70-99) 11/24/23 04:49
Calcium 9.2 mg/dl (8.4-10.2) 11/24/23 04:49
LDL Cholesterol, Calc 122 mg/dl 11/24/23 04:49
Patient Allergies
No Known Allergies Allergy (Unverified 11/23/23 12:07)
Review of Systems
-
History Source: Patient
All other systems: Reviewed and negative
Constitutional: No Symptoms
EENT: No Symptoms Reported
Respiratory: No Symptoms
Cardiac: No Symptoms
Abdomen/GI: No Symptoms
Genitourinary: No Symptoms
Musculoskeletal: No Symptoms
Skin: No Symptoms
Neuro: Weakness (right facial weakness)
Endocrine: No Symptoms
Hematologic / Lymphatic: No Symptoms
Allergy / Immunology: No Symptoms
Physical Exam
-
General: Well Developed and Well Nourished
Eyes: Round OU
HEENT: Normocephalic
Neck: Full Range of Motion
Respiratory: No Dyspnea
Cardiac: Regular Rhythm
GI: Soft
Skin: Unremarkable
Extremities: No Edema
Psych: Unremarkable
Extended Neurological Exam
Mood & Affect: Mood Unremarkable and Affect Unremarkable
Attention Span & Concentration: Awake, Alert, Interactive and No Difficulty with 2 Step Request
Memory: Unremarkable
Tremor: Hand Tremor Absent and Head Tremor Absent
Involuntary Movement: None
Speech: Quality Unremarkable, Quantity Unremarkable and Rate of Production Unremarkable
Cranial Nerve II: Left Eye: Pupillary Reactivity Unremarkable and Pupillary Size Unremarkable
Cranial Nerve II: Right Eye: Pupillary Reactivity Unremarkable and Pupillary Size Unremarkable
Cranial Nerves III, IV, : Extraocular Movement: Extraocular Movement Full in all Directions
Cranial Nerve V: Facial Sensation: Facial Sensation Unremarkable to Cold
Cranial Nerve VII: Facial Symmetry: Reduced (right)
Cranial Nerve VIII: Hearing: Unremarkable Hearing to Normal Conversational Volume
Cranial Nerves IX, X: Palate Movement: Palate Elevation Symmetric
Cranial Nerve XI: Shoulder Shrug: Unremarkable
Cranial Nerve XII: Tongue Protusion: Midline
Muscle Strength, Overall: Full Throughout
Muscle Bulk & Tone: Bulk Unremarkable and Tone Unremarkable
Pronator Drift: No Drift in Upper Extremities and No Drift in Lower Extremities
Cold Sensation: Testing in Upper Extremities and Unremarkable
Touch Sensation: Testing in Upper Extremities and Unremarkable
Coordination: Epswnp-[id number] Testing Unremarkable
Data Reviewed
-
CT-A: Report Reviewed
CT Head: Report Reviewed
MRI Head: Report Reviewed
Labs: Report Reviewed
Lipid Profile: Report Reviewed
HgbA1C: Pending
[2023-11-24] MEDS: PLAVIX 75 MG PO (09:05)
[2023-11-24] MEDS: VITAMIN C 500 MG PO (09:05)
[2023-11-24] MEDS: OSCAL CAL 500 500 MG PO (09:05)
[2023-11-24] MEDS: THERAGRAN 1 TABLET PO (09:05)
[2023-11-24] MEDS: LOW STRENGTH ASPIRIN 81 MG PO (09:05)
[2023-11-24 10:53] LABS: Glycohemoglobin (HgbA1c) 5.6 % (4.0-5.6)
[2023-11-24 11:00] VITALS: BP 111/55
--- NOTE | 2023-11-24 11:14 | PTOTSP ---
Speech Pathology Evaluation
78F with admission for left frontal lobe infarcts p/w a grossly functional oropharyngeal swallow. No overt s/s of aspiration or penetration demonstrated with all textures trialed this date. Unable to r/o silent aspiration at bedside. Aspiration risk
is increased 2/2 recent CVA and R sided facial weakness.
Recommend:
1. Regular solids (IDDSI 7), thin liquids (IDDSI 0)
2. Meds as tolerated
3. General aspiration precautions
4. VSE premature at this time
5. SENIOR PROJECT ENGINEER service to follow up x1 to assess diet level tolerance
--- NOTE | 2023-11-24 14:27 | CM ---
Patient seen bedside, initial assessment completed. Patient resides with her in a two story home with master bedroom on the first floor, 'a few' steps to enter. Patient denies use of DME, VN, or SNF. Patient PCP Camila Bermudez, pharmacy
[facility], confirms prescription coverage. Patient denies food, housing/utility, transportation insecurities. [facility]AY[facility] form reviewed, signed, placed in chart. CM will continue to follow for all discharge planning needs.
Plan; home no needs likely.
[2023-11-24 15:03] VITALS: BP 101/70
[2023-11-24] MEDS: LEXAPRO 10 MG PO (17:51)
[2023-11-24] MEDS: LIPITOR 80 MG PO (17:51)
[2023-11-24 19:45] VITALS: BP 113/80
[2023-11-24 23:09] VITALS: BP 94/53
[2023-11-25 03:16] VITALS: BP 112/61
[2023-11-25] MEDS: SYNTHROID 75 MCG PO (05:32)
--- NOTE | 2023-11-25 07:18 | PTCARENOTE ---
Assumed care at 0700. NIHSS=1, unchanged from previous shift. Report given to chemical laboratory scientist RN. Patient transported via stretcher to chemical laboratory scientist w/ transport staff.
--- NOTE | 2023-11-25 07:28 | W.PN.HOSP.TC ---
Addendum entered and electronically signed by José Miguel Stallworth MD 11/25/23 11:54:
acute cva: dapt statin
pfo small: s/p kandace. no further intervention per cards
?arrhythmia therefore ilr placed by cards
outpt cards and neuro follow up
Original Note:
Today's Communication/Plan
-
.
Assessment / Plan
Assessment / Plan
Patient is a 78 YO F with PMH of aortic stenosis s/p TAVR who presented to hospital with R-sided facial droop and MRI showing 2 areas of frontal lobe infarct.
PLAN:
# Acute/subacute left frontal lobe infarcts
-Right-sided facial droop on examination
-MRI brain with 2 areas of frontal lobe infarcts
-CTA head and neck shows no high-grade stenosis or large vessel occlusion
-Continue aspirin
-Plavix added
-80 mg Atorvastatin added
-Neurology following
- PT and speech consulted. Both cleared patient for home discharge/ no aspiration risk
- Echo showed small PFO, pt to go for TTE and loop today
# Small PFO
-Pt to undergo TTE and loop procedure today
# Tachycardia
-EKG shows normal sinus rhythm, left bundle branch block
-Telemetry monitoring
-48-hour Holter monitor to be arranged by cardiology at [facility]
Severe aortic stenosis status post TAVR
Hypothyroidism
-Continue levothyroxine
Osteopenia/osteoporosis
-Continue calcium, vitamin D
Temporomandibular joint dysfunction
Chronic neck/back pain
Anxiety/depression
-Continue Lexapro
Full code
DVT prophylaxis�SCDs
Regular diet
Anticipated Discharge: Within 24 hours
Subjective/Interval History
-
Date of Service: November 25, 2023
Patient not in room during morning rounds, she was gone for morning procedures. Unable to ask questions or complete PE.
Objective Data
-
Labs:
Laboratory Results
11/25/23
06:00
WBC Pending
Hgb Pending
Hct Pending
Plt Count Pending
Sodium Pending
Potassium Pending
Chloride Pending
Carbon Dioxide Pending
BUN Pending
Creatinine Pending
Glucose Pending
Calcium Pending
Vital Signs:
Vital Signs
Temp Pulse Resp BP Pulse Ox
98.1 F 64 16 112/61 95
11/25/23 03:16 11/25/23 03:16 11/25/23 03:16 11/25/23 03:16 11/25/23 03:16
I&O
11/24/23 11/25/23 11/26/23
06:59 06:59 06:59
Intake Total 480 / 480 240 / 240
Balance 480 / 480 240 / 240
Data Reviewed
-
Medical Tests (Nuc Med, Echo etc): Report Reviewed by me
Labs: Labs Reviewed by me and Discussed with Physician
Old Records: Reviewed
[2023-11-25 07:35] VITALS: BP 123/73
--- NOTE | 2023-11-25 08:41 | W.PN.CD ---
Today's Communication / Plan
-
YASMEEN performed as noted TAVR functing well. no thombus in appendage. PFO present
Plan for Loop monitor
Continue ASA and plavix as per neuro
Impression / Plan
-
CVA? Left facial droop- resolved
-Head CT without acute pathology
- - MRI 11/23/23 Small focal area of acute to subacute infarction involving the left frontal lobe in the region of the inferior and lateral precentral gyrus as described.
- remainsin sinu
-YASMEEN 11/25/23 - Normal LVF, TAVR functioning well. No thrombus in appendage. PFO present ( multiple bubbles easily seen crossing on first beat)
- plan for Loop implant today
Tachycardia, chronic
-Outpatient Holter showed 16% tachycardia
-plan for loop monitor
s/p TAVR (07/2021)
-#29 Medtronic CoreValve Evolut Pro
-functioning well without AR
Maninder's disease, TSH pending
LBBB
Physical Exam
Vital Signs/Labs
Vital Signs
Temp Pulse Resp BP Pulse Ox
98.0 F 78 20 123/73 98
11/25/23 07:35 11/25/23 07:35 11/25/23 07:35 11/25/23 07:35 11/25/23 07:35
11/24/23 11/25/23 11/26/23
06:59 06:59 06:59
Actual Weight 56.331 kg
Triglycerides 122 mg/dl (10-149) 11/24/23 04:49
LDL Cholesterol, Calc 122 mg/dl 11/24/23 04:49
VLDL Cholesterol, Calc 24 mg/dl (0-30) 11/24/23 04:49
HDL Cholesterol 86 mg/dl 11/24/23 04:49
Physical Exam
Constitutional: No acute distress
Cardiovascular: Rhythm & rate is regular
Respiratory: Respiratory effort normal
GI: Soft and Non tender
Neuro/Psych: Alert, Oriented and AO x 3
Data Reviewed
-
Date of Service: November 25, 2023
Medical Decision Making: Reviewed Test Results
Echo: Report Reviewed by me
Medical Tests (PFT, Pathology etc): Report Reviewed by me
Labs: Labs Reviewed by me
--- NOTE | 2023-11-25 10:27 | ITS.CL.IMPLP ---
[employer] [facility] - Implant Loop
Implant Loop
Procedure Report:
Procedure: Insertion of Loop Recorder.�
Date of the procedure: 11/25/2023
Procedure Physician: Herson Lozano MD [facility]
Indication: Cryptogenic stroke
Description of the procedure:
Patient was brought to the holding area after informed consent was obtained from the patient. The time-out was performed immediately before the procedure.
The left parasternal chest area was prepped and draped in sterile fashion with chlorhexidine prep x 3 times. Lidocaine 1% was injected subcutaneously for local anesthesia. The loop recorder was tunneled and then injected into the subcutaneous
tissue. The tunneling tool was removed leaving the loop recorder in place. The dermis was closed with 4-0 monocryl and steristrips and a pressure Tegaderm dressing was placed. There were no immediate complications.
Post procedure, the device was interrogated and showed good detectable P and R waves.
There were no immediate complications.
Device:
LINQII; Model: LNQ22; Serial #:[id number]
R wave amplitude: 0.24 mV
Final Programming:
��������������� Tachycardia Detection: >182 bpm for 16 beats
��������������� Bradycardia Detection: 30 bpm for 12 beats, Asystole for 5 seconds.
��������������� Atrial fibrillation detection: On with > 10 min duration
Conclusion:
Successful insertion of loop recorder.
Recommendation:
Routine post-insert loop care.
--- NOTE | 2023-11-25 11:17 | W.DCSUMMARY ---
Documented by User: Ravindra Gregorio DO, Resident 11/25/23 11:24
Discharge Summary
Discharge Data
Date of Admission: 11/23/23
Date of Discharge: 11/25/23
Total time spent discharging patient (in min): 30
-
Pending Results: No
Hospital Course
Admission diagnosis: subacute infarct involving L frontal lobe
Diagnosis DIRECTOR OPERATING ROOM:
severe aortic stenosis s/p TAVR
hypothyroidism
osteopenia
TMJ
chronic neck/back pain
depression/anxiety
Hospital Admission: 78-year-old female past medical history of severe aortic stenosis status post TAVR, hypothyroidism, osteopenia/osteoporosis, temporomandibular joint dysfunction, chronic neck/back pain, presenting to the emergency room for
right-sided facial droop. She developed R-sided facial droop on 11/23 and her revenue field auditor recommended she come to the hospital for further evaluation. MRI brain showed 2 areas of frontal lobe with infarct. CTA head and neck showed no high grade
stenosis or large vessel occlusion. She was started on Plavix and 80 mg statin, as well as continued on home ASA. Neurology and Cardiology on board and following. Echo showed small PFO. TTE and loop closure planned for 11/24. Please see below for
complete loop device summary and settings. YASMEEN performed and TAVR was seen to be functioning well. There was no thrombus in appendage. PFO was present. PT evaluation showed no deficits, she is independent with ambulation without need of
assistive devices. Speech evaluation recommended regular solids (IDDSI 7) with thin liquids and no overt aspiration seen.
Data reviewed:
11/23/23: Head/Neck CTA
IMPRESSION:
Patent cervical and intracranial arterial vasculature without high-grade stenosis or large vessel occlusion.
Chronic/incidental findings as detailed in the body of the report.
11/22- Head CT:
No acute intracranial abnormality.
11/22- Brain MRI:
IMPRESSION: Small focal area of acute to subacute infarction involving the left frontal lobe in the region of the inferior and lateral precentral gyrus as described.
Probable second small focus of acute to subacute infarction slightly more superiorly and anteriorly within the left frontal lobe as described. However this is peripheral and could possibly be artifactual.
Small focal areas of old infarction as described above.
11/22- Echo:
CONCLUSIONS
Normal left ventricular size and systolic function.
LV ejection fraction is 55-60% by Ramirez's method of discs.
Normal right ventricular size and function.
S/p TAVR. Evolut 29. Peak/mean gradients are 25/14 mmHg. No aortic regurgitation is seen.
Estimated pulmonary artery pressure of 25 mmHg. Assuming a right atrial pressure of 3 mmHg.
Aneurysmal interatrial septum with small PFO demonstrated on agitated saline injection.
Compared to prior from December 30, 2022, status post TAVR mean gradients are higher today at 14 mmHg previously 6 mmHg.
11/23- Peripheral Vascular US:
IMPRESSION: No evidence of deep venous thrombosis bilaterally.
11/24- Insertion of Loop:
Device:
LINQII; Model: LNQ22; Serial #:[id number]
R wave amplitude: 0.24 mV
Final Programming:
��������������� Tachycardia Detection: >182 bpm for 16 beats
��������������� Bradycardia Detection: 30 bpm for 12 beats, Asystole for 5 seconds.
��������������� Atrial fibrillation detection: On with > 10 min duration
Discharge Plan
-
Patient Disposition: Home (Routine Discharge)
Discharge Diagnosis/Procedures: CVA
Condition: Good
Diet: No restrictions and As tolerated
Activity: No restrictions and As tolerated
Driving Restrictions: As prior to admission
Bathing Restrictions: After dressing removed
Stand Alone Forms: DC Inst - Implanted Device
Referrals:
[facility]- [facility] [Provider Group] - 12/06/23 1:00 pm (Incision check appointment)
Camila Bermudez MD [Family Provider] - in one to two weeks
Declan Torres MD [Active] - 01/06/24 2:40 pm
Additional Discharge Medication Instructions: Please follow up with your Type Casting Machine Operator len DAVIS regarding cardiac technician and anticoagulation
Prescriptions:
New
atorvastatin 80 mg Tablet
80 mg PO QPM 30 Days Qty: 30 2RF
clopidogrel 75 mg Tablet
75 mg PO DAILY 30 Days Qty: 30 2RF
Continued
escitalopram oxalate 10 MG tablet
10 mg PO QPM
Prolia 60 MG/ML syringe
60 mg SQ .[id number]
ecfipbne-mjd-kfjf fum-folic ac 1 EACH tablet
1 ea PO DAILY
acetaminophen 325 MG tablet
650 mg PO Q6HPRN PRN (Reason: [place], mild pain, or fever >101F) 0RF
guar gum Packet
1 tbsp PO DAILY
levothyroxine [Synthroid] 75 mcg tablet
75 mcg PO SUMOWETHFRSA@0600
calcium carbonate 500 mg calcium (1,250 mg) Tablet
500 mg PO DAILY
ascorbic acid (vitamin C) 500 mg Tablet
500 mg PO DAILY
aspirin 81 mg Tablet,Chewable
81 mg PO DAILY
ergocalciferol (vitamin D2) 1,250 mcg (50,000 unit) Capsule
1,250 mcg PO Q21D
Discharge Orders:
Discharge Patient (As Directed); Ordered 11/25/23
Ordered By: Ravindra Gregorio
Discharge Date and Time
Print Language: TONGAN

Documented by User: José Miguel Stallworth MD 11/25/23 11:53
Discharge Summary
Discharge Data
Date of Admission: 11/23/23
Date of Discharge: 11/25/23
Discharge Plan
-
Patient Disposition: Home (Routine Discharge)
Discharge Diagnosis/Procedures: CVA
Condition: Good
Diet: No restrictions and As tolerated
Activity: No restrictions and As tolerated
Driving Restrictions: As prior to admission
Bathing Restrictions: After dressing removed
Stand Alone Forms: DC Inst - Implanted Device
Referrals:
[facility]- [facility] [Provider Group] - 12/06/23 1:00 pm (Incision check appointment)
Camila Bermudez MD [Family Provider] - in one to two weeks
Declan Torres MD [Active] - 01/06/24 2:40 pm
Additional Discharge Medication Instructions: Please follow up with your Type Casting Machine Operator len DAVIS regarding cardiac technician and anticoagulation
Prescriptions:
New
atorvastatin 80 mg Tablet
80 mg PO QPM 30 Days Qty: 30 2RF
clopidogrel 75 mg Tablet
75 mg PO DAILY 30 Days Qty: 30 2RF
Continued
escitalopram oxalate 10 MG tablet
10 mg PO QPM
Prolia 60 MG/ML syringe
60 mg SQ .[id number]
jwigfszo-syo-pofy fum-folic ac 1 EACH tablet
1 ea PO DAILY
acetaminophen 325 MG tablet
650 mg PO Q6HPRN PRN (Reason: [place], mild pain, or fever >101F) 0RF
guar gum Packet
1 tbsp PO DAILY
levothyroxine [Synthroid] 75 mcg tablet
75 mcg PO SUMOWETHFRSA@0600
calcium carbonate 500 mg calcium (1,250 mg) Tablet
500 mg PO DAILY
ascorbic acid (vitamin C) 500 mg Tablet
500 mg PO DAILY
aspirin 81 mg Tablet,Chewable
81 mg PO DAILY
ergocalciferol (vitamin D2) 1,250 mcg (50,000 unit) Capsule
1,250 mcg PO Q21D
Discharge Orders:
Discharge Patient (As Directed); Ordered 11/25/23
Ordered By: Ravindra Gregorio
Discharge Date and Time
Print Language: TONGAN
[2023-11-25] MEDS: OSCAL CAL 500 500 MG PO (11:21)
[2023-11-25] MEDS: PLAVIX 75 MG PO (11:21)
[2023-11-25] MEDS: VITAMIN C 500 MG PO (11:21)
[2023-11-25] MEDS: LOW STRENGTH ASPIRIN 81 MG PO (11:22)
[2023-11-25] MEDS: THERAGRAN 1 TABLET PO (11:22)
--- NOTE | 2023-11-25 12:00 | PTCARENOTE ---
Received back from mobile home laborer around 10:50. VSS. AOx3. gauze/tegaderm dressing to L chest noted, clean and dry. Eager to eat lunch. Updated on dc plans.
[2023-11-25 12:19] VITALS: BP 109/71
[2023-11-25 13:08] VITALS: BP 111/76
[2023-11-25 13:16] LABS: Hematocrit 38.9 % (37.0-47.0); Hemoglobin 13.4 g/dL (12.0-16.0); Mean Corp Hgb Conc. 34.4 g/dL (33.0-37.0); Mean Corpuscular Hgb 31.8 pg (27.0-31.0); Mean Corpuscular Volume 92.2 fL (81.0-99.0); Mean Platelet Volume 10.1 fL (7.4-10.4); Platelet Count 189 10^3/uL (130-400); Red Blood Cell Count 4.22 10^6/uL (4.20-5.40)
[2023-11-25 14:13] LABS: Blood Urea Nitrogen 21 mg/dl (7-17); Calcium 9.7 mg/dl (8.4-10.2); Carbon Dioxide 27 mmol/L (22-30); Chloride 103 mmol/L (98-107); Estimated Creatinine Clearance 44 ml/min; Glucose 150 mg/dl (70-99); Potassium 4.4 mmol/L (3.5-5.1); Sodium 137 mmol/L (135-145); eGFR > 60.00
--- NOTE | 2023-11-25 14:17 | CM ---
Patient seen bedside, reports no needs to CM, plan home no needs. CM will continue to follow for all discharge planning needs.
Plan; home no needs.
[2023-11-25 14:36] LABS: Lyme Antibody Screen, EIA Negative (Negative)
== END 2023-11-25 14:11 | disposition home or self-care (01) ==
LOC: 4 WEST ACU 20:34
PROVIDERS: Physician Assistant; Student in an Organized Health Care Education/Training Program; ADMITTING PHYSICIAN Hospitalist; ATTENDING PHYSICIAN Hospitalist; CONSULT PHYSICIAN Internal Medicine Cardiovascular Disease; CONSULT PHYSICIAN Psychiatry & Neurology Neurology; EMERGENCY PHYSICIAN Emergency Medicine; FAMILY PHYSICIAN Internal Medicine
DX: I63.89 Other cerebral infarction (principal); R29.810 Facial weakness; I25.10 Atherosclerotic heart disease of native coronary artery without angina pectoris; M81.0 Age-related osteoporosis without current pathological fracture; E06.3 Autoimmune thyroiditis; I35.0 Nonrheumatic aortic (valve) stenosis; R00.0 Tachycardia, unspecified; M26.609 Unspecified temporomandibular joint disorder, unspecified side; R42 Dizziness and giddiness; R53.1 Weakness; Q21.12 Patent foramen ovale; F41.9 Anxiety disorder, unspecified; F32.A Depression, unspecified; R20.0 Anesthesia of skin; R60.0 Localized edema; I44.7 Left bundle-branch block, unspecified; M85.88 Other specified disorders of bone density and structure, other site; G89.29 Other chronic pain; M54.9 Dorsalgia, unspecified; M54.2 Cervicalgia; Z95.3 Presence of xenogenic heart valve; Z82.3 Family history of stroke; Z96.651 Presence of right artificial knee joint; Z87.891 Personal history of nicotine dependence; Z82.49 Family history of ischemic heart disease and other diseases of the circulatory system; Z79.82 Long term (current) use of aspirin
CPT/HCPCS: 33285; 70450; 70496; 70498; 70551; 80048; 80053; 80061; 83036; 84443; 85025; 85027; 86618; 92610; 92960; 93005; 93306; 93312; 93320; 93325; 93970; 97162; 97165; 99291; C1764; G0378; Q9967

== ENCOUNTER → 2023-12-29 10:01 | Outpatient (REF) | payer MEDICARE, OTHER, SELFPAY ==
[2023-12-29 10:58] LABS: % Eosinophils 2.9 % (0-6); % Immature Granulocytes 0.4 % (0-0.5); % Lymphocytes 33.4 % (20.5-51.1); % Monocytes 8.2 % (1.7-9.3); % Neutrophils 54.1 % (42.2-75.2); Absolute Basophils 0.1 10^3/uL (0-0.2); Absolute Eosinophils 0.1 10^3/uL (0-0.7); Absolute Lymphocytes 1.6 10^3/uL (1.2-3.4); Absolute Monocytes 0.4 10^3/uL (0.1-0.6); Absolute Neutrophils 2.6 10^3/uL (1.4-6.5); Hematocrit 36.1 % (37.0-47.0); Hemoglobin 12.3 g/dL (12.0-16.0); Mean Corp Hgb Conc. 34.1 g/dL (33.0-37.0); Mean Corpuscular Hgb 30.6 pg (27.0-31.0); Mean Corpuscular Volume 89.8 fL (81.0-99.0); Mean Platelet Volume 10.1 fL (7.4-10.4); Nucleated Red Blood Cells % 0 %; Platelet Count 208 10^3/uL (130-400); Red Blood Cell Count 4.02 10^6/uL (4.20-5.40); Red Cell Dist. Width 12.7 % (11.5-14.5); White Blood Cell Count 4.9 10^3/uL (4.8-10.8)
[2023-12-29 11:56] LABS: ALT (SGPT) 76 U/L (0-35); AST (SGOT) 57 U/L (14-36); Albumin 4.4 g/dl (3.5-5.0); Alkaline Phosphatase 54 U/L (38-126); Blood Urea Nitrogen 19 mg/dl (7-17); Calcium 9.4 mg/dl (8.4-10.2); Carbon Dioxide 26 mmol/L (22-30); Chloride 103 mmol/L (98-107); Glucose 100 mg/dl (70-99); HDL Cholesterol 77 mg/dl; LDL Cholesterol, Calculated 46 mg/dl; Potassium 4.4 mmol/L (3.5-5.1); Sodium 142 mmol/L (135-145); Total Bilirubin 0.8 mg/dl (0.2-1.3); Total Cholesterol 139 mg/dl (50-199); Total Protein 6.5 g/dl (6.3-8.2); Triglyceride 84 mg/dl (10-149); Very Low Density Lipoprotein 16 mg/dl (0-30); eGFR > 60.00
[2023-12-29 12:12] LABS: Vitamin D, 25-OH*** 58.6 ng/mL (30-80)
[2023-12-29 12:25] LABS: TSH 1.71 uIU/ml (0.47-4.68)
[2023-12-29 12:40] LABS: Glycohemoglobin (HgbA1c) 5.5 % (4.0-5.6)
== END ==
LOC: REG 10:01
PROVIDERS: ATTENDING PHYSICIAN Internal Medicine
DX: E78.00 Pure hypercholesterolemia, unspecified (principal); R73.01 Impaired fasting glucose; R53.83 Other fatigue; E55.9 Vitamin D deficiency, unspecified
CPT/HCPCS: 36415; 80053; 80061; 82306; 83036; 84443; 85025

== ENCOUNTER → 2024-01-05 08:24 | Outpatient (REF) | payer MEDICARE, OTHER, SELFPAY | LOC: RAD 08:24 | PROVIDERS: ATTENDING PHYSICIAN Internal Medicine Cardiovascular Disease; FAMILY PHYSICIAN Internal Medicine | DX: R06.02 Shortness of breath (principal); I63.9 Cerebral infarction, unspecified; R00.0 Tachycardia, unspecified | CPT/HCPCS: 71275; Q9967 ==

== ENCOUNTER → 2024-01-20 08:28 | Outpatient (REF) | payer MEDICARE, OTHER, SELFPAY | LOC: RSP 08:28 | PROVIDERS: ATTENDING PHYSICIAN Internal Medicine Cardiovascular Disease; FAMILY PHYSICIAN Internal Medicine | DX: R06.02 Shortness of breath (principal) | CPT/HCPCS: 94727; 94729; 88738; 94010 ==

== ENCOUNTER 2024-01-22 13:34 | Emergency (ER) | payer MEDICARE, OTHER, SELFPAY ==
[2024-01-22 13:36] VITALS: BP 123/96
--- NOTE | 2024-01-22 13:50 | ED.GENMED ---
History of Present Illness
<Mildred De Jesus PA-C - Last Filed: 01/22/24 18:17>
General
Chief Complaint: Abdominal Symptoms
Source: patient
Exam Limitations: none
Time Seen by Provider: 01/22/24 13:48
Nursing documentation reviewed up to this point in time: agreed with
History of Present Illness
History of Present Illness:
78-year-old female with past medical history of prior stroke in November with no remaining deficits, hypothyroidism, aortic stenosis with loop recorder in place presents emergency department today with concerns of left lower quadrant abdominal pain
and low back pain for the past few days. Patient is also had multiple episodes of diarrhea with this and reports a 3 pound weight loss within the past week. Patient also notes a decreased appetite. Patient denies any rectal bleeding, blood in the
stools, nausea or vomiting, fevers or chills. Patient reports any recent travel outside the country. Patient denies any intra-abdominal surgeries. Patient has no diverticulosis. Patient denies any burning with urination, hematuria, urinary
frequency or urgency. Patient denies any recent antibiotic use. Patient states that she feels dehydrated.
Review of Systems
<Mildred De Jesus PA-C - Last Filed: 01/22/24 18:17>
Review of Systems
All Other Systems: ROS reviewed and negative except as documented in HPI and ROS
Phy Exam
<Mildred De Jesus PA-C - Last Filed: 01/22/24 18:17>
Physical Exam
Physical Exam:
General: Patient is well appearing and in no acute distress; non-toxic
Skin: Warm and dry, no rashes or lesions
Head: Normocephalic, atraumatic
Eyes: Sclera non-icteric. EOMs intact. PERRLA.
Cardiac: Regular rate and rhythm, systolic murmur noted
Pulm: Normal respiratory effort, no wheezes, rales, or rhonchi
Abdomen: Minimal abdominal tenderness to palpation, normoactive bowel sounds, no guarding
Musculoskeletal: No midline lumbar spinal tenderness.
Neuro: CN II-XII intact, no focal neurologic deficits.
Psychiatric: Appropriate mood and affect.
Course
<Mildred De Jesus PA-C - Last Filed: 01/22/24 18:17>
Orders/Labs/Results
Orders:
Orders
01/22/24 14:03
CT Abd/pelvis W Iv Cont Urgent
Comment:
Reason For Exam: low back pain, llq pain
01/22/24 14:04
Ketorolac [Toradol] 15 mg IV NOW STA
01/22/24 14:15
Complete Blood Count/With Diff Urgent
Comprehensive Metabolic Panel Urgent
Lipase Urgent
Urinalysis Reflex To Culture Urgent
Date Specimen was Collected: 01/22/24
Time Specimen was Collected: 14:08
Urine Microscopic Reflex Cult Urgent
Urine Culture Urgent
KRISHNA Source: U
Specimen Description:
Date Specimen was Collected: 01/22/24
Time Specimen was Collected: 14:08
01/22/24 14:17
Add On- LAB Urgent
Tests Added?: lactic
01/22/24 14:18
0.9% Sodium Chloride 500 ml [Nss] 500 ml IV BOLUS
01/22/24 14:45
Lactic Acid Urgent
Abnormal Lab Results
01/22/24 01/22/24
14:15 14:45
Monocytes % 9.4 H %
(1.7-9.3)
Lactic Acid 0.5 L mmol/L
(0.7-2.0)
AST 46 H U/L
(14-36)
ALT 69 H U/L
(0-35)
Ur Occult Blood Reflex 3+ A
(Negative)
Leukocyte Esterase Rfl 1+ A
(Negative)
Urine RBC 7-10 A /HPF
(0-2)
Urine Bacteria (Reflex) Few A
(Negative)
01/22/24 14:15
01/22/24 14:15
Vital Signs
Initial and Last Documented VS:
Initial Vital Signs
Temp Pulse Resp BP Pulse Ox
99.4 F 92 16 123/96 96
01/22/24 13:36 01/22/24 13:36 01/22/24 13:36 01/22/24 13:36 01/22/24 13:36
Last Documented Vital Signs
Temp Pulse Resp BP Pulse Ox
99.4 F 78 18 109/68 98
01/22/24 13:36 01/22/24 16:19 01/22/24 16:19 01/22/24 16:19 01/22/24 16:19
<Oxana Mireles MD - Last Filed: 01/22/24 14:34>
Orders/Labs/Results
Orders:
Orders
01/22/24 14:03
CT Abd/pelvis W Iv Cont Urgent
Comment:
Reason For Exam: low back pain, llq pain
01/22/24 14:04
Ketorolac [Toradol] 15 mg IV NOW STA
01/22/24 14:15
Complete Blood Count/With Diff Urgent
Comprehensive Metabolic Panel Urgent
Lipase Urgent
Urinalysis Reflex To Culture Urgent
Date Specimen was Collected: 01/22/24
Time Specimen was Collected: 14:08
Urine Microscopic Reflex Cult Urgent
Urine Culture Urgent
KRISHNA Source: U
Specimen Description:
Date Specimen was Collected: 01/22/24
Time Specimen was Collected: 14:08
01/22/24 14:17
Add On- LAB Urgent
Tests Added?: lactic
01/22/24 14:18
0.9% Sodium Chloride 500 ml [Nss] 500 ml IV BOLUS
01/22/24 14:45
Lactic Acid Urgent
Abnormal Lab Results
01/22/24 01/22/24
14:15 14:45
Monocytes % 9.4 H %
(1.7-9.3)
Lactic Acid 0.5 L mmol/L
(0.7-2.0)
AST 46 H U/L
(14-36)
ALT 69 H U/L
(0-35)
Ur Occult Blood Reflex 3+ A
(Negative)
Leukocyte Esterase Rfl 1+ A
(Negative)
Urine RBC 7-10 A /HPF
(0-2)
Urine Bacteria (Reflex) Few A
(Negative)
01/22/24 14:15
01/22/24 14:15
Vital Signs
Initial and Last Documented VS:
Initial Vital Signs
Temp Pulse Resp BP Pulse Ox
99.4 F 92 16 123/96 96
01/22/24 13:36 01/22/24 13:36 01/22/24 13:36 01/22/24 13:36 01/22/24 13:36
Last Documented Vital Signs
Temp Pulse Resp BP Pulse Ox
99.4 F 78 18 109/68 98
01/22/24 13:36 01/22/24 16:19 01/22/24 16:19 01/22/24 16:19 01/22/24 16:19
Joselt;Mildred De Jesus PA-C - Last Filed: 01/22/24 18:17>
MDM/Problems Addressed
Differential Diagnosis Includes:
Differentials include nephrolithiasis, diverticulitis, urinary tract infection, gastroenteritis
MDM/Problems Addressed:
78-year-old female with past medical history of prior stroke in November with no remaining deficits, hypothyroidism, aortic stenosis with loop recorder in place presents emergency department today with concerns of left lower quadrant abdominal pain
and low back pain for the past few days. On physical exam, she has minimal abdominal tenderness. She is well-appearing her vitals are stable she is afebrile. Her CBC and CMP are unremarkable, does note some mild LFT elevation however patient
reports that this is likely from her cholesterol medication. Patient will follow-up with her PCP regarding this. CAT scan was negative for any diverticulitis but did show bilateral renal cyst, this may explain microscopic hematuria found on
urinalysis. Patient also complained of foul-smelling urine, so a UTI may also explain this. Her urinalysis did show leukocyte esterase and few bacteria, will treat considering symptoms. CAT scan also revealed a pancreatic 7 mm mass. Discussed
importance of GI follow-up and MRI for this. Message sent to GI front man to try to get patient a sooner appointment. Encouraged patient to stay well-hydrated patient stable for discharge.
Chronic conditions affecting care:
Diverticulosis, hypothyroidism, anxiety, aortic stenosis
<Mildred De Jesus PA-C - Last Filed: 01/22/24 18:17>
*Pulse Oximetry
Patient hypoxic: no
*Critical Care Note
Total Time (30-74mins, 75-104mins- exclusive of procedures): Not Applicable
Data Reviewed
Review of Other/Old Records Reveals: Records (Reviewed discharge summary from 11/25/2023, patient seen for right sided facial droop)
Prescriptions/Medications Considered But Not Given:
n/a
Further Testing Considered But Not Given:
n/a
ED Attending Note
<Mildred De Jesus PA-C - Last Filed: 01/22/24 18:17>
-
Portions of this chart may have been created with voice recognition software.� Occasional wrong word or��sound alike� substitutions may have occurred due to the inherent limitations of voice recognition software.
<Oxana Mireles MD - Last Filed: 01/22/24 14:34>
ED Attending Note
Patient seen and examined by attending physician: Yes
I performed the substantive portion of visit, reviewed & personally made and approve the management plan that is documented in note by myself or JUANA.: Yes
ED Attending Note:
Patient is a 78-year-old woman with history of diverticulosis, hypothyroidism presenting to the emergency department for the past 3 days. Patient states that she has been having right-sided back pain that radiates to her front along with diarrhea
for the past 3 days. She has had decreased p.o. secondary to the diarrhea. Currently the pain is all throughout. Is never happened to her before. No recent travel antibiotics or sick contacts. No nausea or vomiting. No fevers or chills. She
is having some foul-smelling urine but no urinary frequency hesitancy or urgency. She did go to an urgent care where she was found to have hematuria on her urine and was sent here to rule out kidney stone/diverticulitis. Of note patient does state
that she has been having elevated LFTs secondary to her Lipitor and has been being followed by her PCP.
GENERAL: in no acute distress
HEENT: normocephalic, extraocular movements intact, moist oral mucosa
NECK: normal inspection
RESPIRATORY: no respiratory distress, clear to auscultation bilaterally
CARDIOVASCULAR: regular rate and rhythm
ABDOMEN/: soft, non-distended, diffusely tender to palpation, no rebound or guarding
EXTREMITIES: non-tender, no edema/swelling
NEUROLOGIC: awake and alert, moves all extremities
SKIN: warm
Patient is a 78-year-old woman presenting to the emergency department 3 days of right-sided back pain, abdominal pain diarrhea. Vitals are unremarkable and exam is shows a woman who is resting comfortably with mild diffuse tenderness all throughout
her abdomen.
Differential: Diverticulitis, UTI, kidney stone, aortic pathology, mesenteric ischemia, obstruction
MDM: Most likely given the diarrhea and the diffuse abdominal pain could be diverticulitis however with the hematuria and the back pain that radiates to the groin could also be kidney stone. Given the foul-smelling urine certainly could be a UTI.
Less likely to be aortic pathology such as AAA rupture given that patient's blood pressure here is unremarkable. History exam is not consistent with acute abdomen such as obstruction or perforated viscus. Pain is not out of proportion on exam to
suggest mesenteric ischemia.
We will order basic blood work including LFT, lipase, lactate, urine. Will also check CT scan. Will give fluids.
Discharge Plan
Departure
Patient Disposition: Home (Routine Discharge)
Date of Disposition: 01/22/24
Time of Disposition: 16:01
Patient with high blood pressure during this ER visit?: Yes
Condition: Good
Discharge Problem:
Abdominal pain, Urinary tract infection
Instructions: Urinary Tract Infection, Adult ED, Abdominal Pain, BLOOD PRESSURE
Prescriptions:
New
cephalexin 500 mg capsule
500 mg PO BID 5 Days Qty: 10 0RF
No Action
escitalopram oxalate 10 MG tablet
10 mg PO QPM
Prolia 60 MG/ML syringe
60 mg SQ .[id number]
xqkatwvo-njf-mojc fum-folic ac 1 EACH tablet
1 ea PO DAILY
acetaminophen 325 MG tablet
650 mg PO Q6HPRN PRN (Reason: [place], mild pain, or fever >101F) 0RF
guar gum Packet
1 tbsp PO DAILY
levothyroxine [Synthroid] 75 mcg tablet
75 mcg PO SUMOWETHFRSA@0600
calcium carbonate 500 mg calcium (1,250 mg) Tablet
500 mg PO DAILY
ascorbic acid (vitamin C) 500 mg Tablet
500 mg PO DAILY
aspirin 81 mg Tablet,Chewable
81 mg PO DAILY
ergocalciferol (vitamin D2) 1,250 mcg (50,000 unit) Capsule
1,250 mcg PO Q21D
atorvastatin 80 mg Tablet
80 mg PO QPM 30 Days Qty: 30 2RF
clopidogrel 75 mg Tablet
75 mg PO DAILY 30 Days Qty: 30 2RF
Referrals:
Camila Bermudez MD [Family Provider] -
Connor Schofield MD [Active] - Call in 1-3 days for appt
Activity Restrictions/Additional Instructions:
Your CT scan showed a 7 mm low-density/cystic mass at the body of the pancreas. Please follow-up with gastroenterology. You may need an MRI.
I have sent your information to Dr. Schofield's office. You should receive a call within a few days to set up an appointment, if you do not, please call the attached number.
Please follow-up with your primary care provider to reassess your symptoms.
An antibiotic has been sent to your pharmacy. Please take 1 tablet twice daily for 5 days.
Please return emergency department should you experience any acute worsening of her symptoms, fevers, blood in your diarrhea, chest pain, shortness of breath, intractable vomiting, or any other signs or symptoms concerning to you.
Interventions
Interventions:
*Risk Screen - Suicide Last Done: 01/22/24 13:36
*General Assessment Last Done: 01/22/24 13:36
*ED COVID-19 Vaccine History Last Done: 01/22/24 13:36
*Nursing Disposition Last Done: 01/22/24 16:21
VZ-Jnrssv-Ajzjtlwqxj Assessment Last Done: 01/22/24 14:06
Discharge Date and Time
Discharge Date/Time: 01/22/24 16:21
Print Language: URDU
[2024-01-22 14:06] VITALS: BMI 22.5
[2024-01-22] MEDS: NSS 500 IV (14:19)
[2024-01-22] MEDS: TORADOL 15 MG IV (14:20)
[2024-01-22 14:31] LABS: % Basophils 0.5 % (0-2); % Eosinophils 2.3 % (0-6); % Immature Granulocytes 0.4 % (0-0.5); % Lymphocytes 25.8 % (20.5-51.1); % Monocytes 9.4 % (1.7-9.3); % Neutrophils 61.6 % (42.2-75.2); Absolute Eosinophils 0.1 10^3/uL (0-0.7); Absolute Lymphocytes 1.5 10^3/uL (1.2-3.4); Absolute Monocytes 0.5 10^3/uL (0.1-0.6); Absolute Neutrophils 3.5 10^3/uL (1.4-6.5); Hematocrit 37.6 % (37.0-47.0); Hemoglobin 12.8 g/dL (12.0-16.0); Mean Corpuscular Hgb 30.3 pg (27.0-31.0); Mean Corpuscular Volume 88.9 fL (81.0-99.0); Mean Platelet Volume 9.7 fL (7.4-10.4); Nucleated Red Blood Cells % 0 %; Platelet Count 191 10^3/uL (130-400); Red Blood Cell Count 4.23 10^6/uL (4.20-5.40); Red Cell Dist. Width 13.1 % (11.5-14.5); White Blood Cell Count 5.6 10^3/uL (4.8-10.8)
[2024-01-22 14:42] LABS: Urine Albumin Negative (Neg - Trace); Urine Bilirubin Negative (Negative); Urine Character Clear (Clear); Urine Color Yellow; Urine Glucose Negative (Negative); Urine Ketone Negative (Negative); Urine Leukocyte 1+ (Negative); Urine Nitrite Negative (Negative); Urine Occult Blood 3+ (Negative); Urine Specific Gravity 1.015 (<1.030); Urine Urobilinogen Negative (Neg - 1+)
[2024-01-22 14:46] LABS: ALT (SGPT) 69 U/L (0-35); AST (SGOT) 46 U/L (14-36); Albumin 4.4 g/dl (3.5-5.0); Alkaline Phosphatase 60 U/L (38-126); Blood Urea Nitrogen 14 mg/dl (7-17); Calcium 8.6 mg/dl (8.4-10.2); Carbon Dioxide 26 mmol/L (22-30); Chloride 105 mmol/L (98-107); Estimated Creatinine Clearance 45 ml/min; Glucose 99 mg/dl (70-99); Sodium 142 mmol/L (135-145); Total Bilirubin 0.6 mg/dl (0.2-1.3); Total Protein 6.5 g/dl (6.3-8.2); eGFR > 60.00
[2024-01-22 14:51] LABS: Urine Mucus Few
[2024-01-22 14:53] LABS: Urine Bacteria Few (Negative)
[2024-01-22 14:55] LABS: Lipase 170 U/L (23-300)
[2024-01-22 16:10] LABS: Lactic Acid 0.5 mmol/L (0.7-2.0)
[2024-01-22 16:19] VITALS: BP 109/68
== END 2024-01-22 16:21 | disposition home or self-care (01) ==
LOC: EMR 13:34
PROVIDERS: Physician Assistant; EMERGENCY PHYSICIAN Student in an Organized Health Care Education/Training Program; FAMILY PHYSICIAN Internal Medicine
DX: N39.0 Urinary tract infection, site not specified (principal); R10.32 Left lower quadrant pain; E03.9 Hypothyroidism, unspecified; I35.0 Nonrheumatic aortic (valve) stenosis
CPT/HCPCS: 99285; 96374; 96361; 74177; 80053; 81003; 81015; 83605; 83690; 85025; 87086; Q9967

== ENCOUNTER → 2024-02-16 10:05 | Outpatient (REF) | payer MEDICARE, OTHER, SELFPAY | LOC: PAVMRI 10:05 | PROVIDERS: ATTENDING PHYSICIAN Internal Medicine; FAMILY PHYSICIAN Internal Medicine | DX: K86.2 Cyst of pancreas (principal) | CPT/HCPCS: 74183; A9575 ==

== ENCOUNTER → 2024-04-25 09:32 | Outpatient (REF) | payer MEDICARE, OTHER, SELFPAY ==
[2024-04-25 11:57] LABS: ALT (SGPT) 52 U/L (0-35); AST (SGOT) 40 U/L (14-36); Albumin 4.3 g/dl (3.5-5.0); Alkaline Phosphatase 44 U/L (38-126); Blood Urea Nitrogen 19 mg/dl (7-17); Calcium 8.8 mg/dl (8.4-10.2); Carbon Dioxide 30 mmol/L (22-30); Chloride 102 mmol/L (98-107); Glucose 100 mg/dl (70-99); Potassium 4.4 mmol/L (3.5-5.1); Sodium 140 mmol/L (135-145); Total Bilirubin 0.8 mg/dl (0.2-1.3); Total Protein 6.4 g/dl (6.3-8.2); eGFR > 60.00
[2024-04-25 12:22] LABS: Vitamin D, 25-OH*** 53.7 ng/mL (30-80)
[2024-04-25 12:35] LABS: TSH 0.61 uIU/ml (0.47-4.68)
== END ==
LOC: RAD 09:32
PROVIDERS: ATTENDING PHYSICIAN Internal Medicine Endocrinology, Diabetes & Metabolism; FAMILY PHYSICIAN Internal Medicine
DX: M81.0 Age-related osteoporosis without current pathological fracture (principal); E03.9 Hypothyroidism, unspecified
CPT/HCPCS: 36415; 77080; 77081; 80053; 82306; 84443

== ENCOUNTER → 2024-06-30 09:32 | Outpatient (REF) | payer MEDICARE, OTHER, SELFPAY ==
[2024-06-30 12:48] LABS: ALT (SGPT) 49 U/L (0-35); AST (SGOT) 35 U/L (14-36); Albumin 4.6 g/dl (3.5-5.0); Alkaline Phosphatase 50 U/L (38-126); Blood Urea Nitrogen 19 mg/dl (7-17); Calcium 9.1 mg/dl (8.4-10.2); Carbon Dioxide 27 mmol/L (22-30); Chloride 102 mmol/L (98-107); Glucose 89 mg/dl (70-99); HDL Cholesterol 97 mg/dl; LDL Cholesterol, Calculated 46 mg/dl; Potassium 4.9 mmol/L (3.5-5.1); Sodium 138 mmol/L (135-145); Total Bilirubin 0.7 mg/dl (0.2-1.3); Total Cholesterol 156 mg/dl (50-199); Total Protein 6.6 g/dl (6.3-8.2); Triglyceride 68 mg/dl (10-149); Very Low Density Lipoprotein 13 mg/dl (0-30); eGFR > 60.00
== END ==
LOC: REG 09:32
PROVIDERS: ATTENDING PHYSICIAN Internal Medicine; OTHER PHYSICIAN Internal Medicine Cardiovascular Disease; REFERRING PHYSICIAN Internal Medicine Endocrinology, Diabetes & Metabolism
DX: E78.00 Pure hypercholesterolemia, unspecified (principal)
CPT/HCPCS: 36415; 80053; 80061

== ENCOUNTER → 2024-11-14 07:08 | Outpatient (REF) | payer MEDICARE, OTHER, SELFPAY ==
[2024-11-14 08:08] LABS: Hematocrit 38.5 % (37.0-47.0); Hemoglobin 12.7 g/dL (12.0-16.0); Mean Corp Hgb Conc. 33.0 g/dL (33.0-37.0); Mean Corpuscular Volume 94.1 fL (81.0-99.0); Nucleated Red Blood Cells % 0 %; Platelet Count 199 10^3/uL (130-400); Red Cell Dist. Width 12.5 % (11.5-14.5)
[2024-11-14 09:00] LABS: ALT (SGPT) 23 U/L (0-35); AST (SGOT) 26 U/L (14-36); Albumin 4.4 g/dl (3.5-5.0); Alkaline Phosphatase 39 U/L (38-126); Blood Urea Nitrogen 23 mg/dl (7-17); Calcium 9.0 mg/dl (8.4-10.2); Carbon Dioxide 26 mmol/L (22-30); Chloride 107 mmol/L (98-107); Glucose 110 mg/dl (70-99); HDL Cholesterol 98 mg/dl; LDL Cholesterol, Calculated 52 mg/dl; Potassium 4.2 mmol/L (3.5-5.1); Sodium 139 mmol/L (135-145); Total Protein 6.6 g/dl (6.3-8.2); Very Low Density Lipoprotein 14 mg/dl (0-30); eGFR > 60.00
[2024-11-14 09:08] LABS: Glycohemoglobin (HgbA1c) 5.7 % (4.0-5.6)
[2024-11-14 10:18] LABS: Vitamin D, 25-OH*** 52.9 ng/mL (30-80)
[2024-11-14 10:31] LABS: TSH 0.52 uIU/ml (0.47-4.68)
== END ==
LOC: REG 07:08
PROVIDERS: ATTENDING PHYSICIAN Internal Medicine; OTHER PHYSICIAN Internal Medicine Cardiovascular Disease; OTHER PHYSICIAN Internal Medicine Endocrinology, Diabetes & Metabolism
DX: E78.00 Pure hypercholesterolemia, unspecified (principal); R53.83 Other fatigue; E55.9 Vitamin D deficiency, unspecified; I63.9 Cerebral infarction, unspecified; Z13.1 Encounter for screening for diabetes mellitus
CPT/HCPCS: 36415; 80053; 80061; 82306; 83036; 84443; 85025

== ENCOUNTER → 2024-11-24 13:30 | Outpatient (REF) | payer MEDICARE, OTHER, SELFPAY | LOC: RCS 13:30 | PROVIDERS: ATTENDING PHYSICIAN Internal Medicine Cardiovascular Disease; FAMILY PHYSICIAN Internal Medicine | DX: R00.0 Tachycardia, unspecified (principal); Z95.2 Presence of prosthetic heart valve; R01.1 Cardiac murmur, unspecified | CPT/HCPCS: 93306 ==